=== PATIENT | male | born 1955 | race Caucasian/White ===

== ENCOUNTER 2016-12-21 11:12 | Observation (INO) | payer BC ==
[2016-12-21] MEDS ORDERED: Pepcid 20 MG VIAL IV ONE (11:19)
[2016-12-21] MEDS ORDERED: BICITRA 30 ML CUP PO ONE (11:19)
[2016-12-21] MEDS ORDERED: CEFAZOLIN 2 GM-D5W BAG** 50 ML IV ONE (11:20)
[2016-12-21] MEDS: Lactated Ringers 1,000 ML IV SCH ×2 (11:36→23:41)
[2016-12-21] MEDS ORDERED: Lactated Ringers 1,000 ML IV ONE ×2 (11:57→15:46)
[2016-12-21] MEDS ORDERED: Sensorcaine 0.25% 10 ML ONE ×2 (11:57→14:23)
[2016-12-21] MEDS ORDERED: Decadron 4 MG INJ IV ONE (12:30)
[2016-12-21] MEDS ORDERED: DIPRIVAN 200 MG/20 ML IV ONE (12:30)
[2016-12-21] MEDS ORDERED: Naropin 0.5% 30 ML VIAL IJ ONE (12:30)
[2016-12-21] MEDS ORDERED: SUBLIMAZE 100 MCG/2 ML IV ONE (12:30)
[2016-12-21] MEDS ORDERED: Zemuron 100 MG/10 ML IV ONE (12:30)
[2016-12-21] MEDS ORDERED: TORAdol 30 mg Injection IV ONE (12:30)
[2016-12-21] MEDS ORDERED: Zofran 4 MG/2 ML VIAL IV ONE (12:30)
[2016-12-21] MEDS ORDERED: BRIDION 200MG/2ML IV ONE (12:30)
[2016-12-21] MEDS ORDERED: DILAUDID 2 MG INJECTION IV ONE (12:30)
[2016-12-21] MEDS ORDERED: KEFZOL 1 GM ONE (14:22)
[2016-12-21] MEDS ORDERED: DILAUDID 2 MG INJECTION ONE (15:24)
[2016-12-21] MEDS ORDERED: SUBLIMAZE 100 MCG/2 ML ONE (15:41)
[2016-12-21] MEDS ORDERED: OFIRMEV 100 ML IV ONE (16:16)
[2016-12-21] MEDS: Morphine PCA 1 MG/ML 30 ML IV PRN (16:36)
[2016-12-21] MEDS ORDERED: MORPHINE SULFATE 4 MG INJ IV PRN (17:16)
[2016-12-21] MEDS ORDERED: MORPHINE SULFATE 2 MG INJ IV PRN (17:16)
[2016-12-21] MEDS: Zofran 4 MG/2 ML VIAL IV PRN (21:03)
[2016-12-21] MEDS: Flomax 0.4 MG PO SCH (21:58)
[2016-12-22] MEDS: Morphine PCA 1 MG/ML 30 ML IV PRN (04:10)
[2016-12-22] MEDS: NORCO 5/325 MG PO PRN ×5 (07:24→22:03)
[2016-12-22] MEDS ORDERED: MEDICATION INTERVENTION MC PRN (08:15)
[2016-12-22] MEDS ORDERED: AZILSARTAN MED PO SCH (10:00)
[2016-12-22] MEDS ORDERED: NON-FORMULARY ITEM (Nebivolol Hcl [Bystolic] 10 MG) PO SCH (10:00)
[2016-12-22] MEDS ORDERED: CHLORTHALIDONE PO SCH (10:00)
[2016-12-22] MEDS: Bystolic 5 MG PO SCH (11:01)
[2016-12-22] MEDS: Zofran 4 MG/2 ML VIAL IV PRN (14:07)
--- NOTE | 2016-12-22 14:29 | OP ---
SURGERY DATE: 12/21/16 SURGERY TIME: 1350 PREOPERATIVE DIAGNOSIS: 1. SYMPTOMATIC BILATERAL INGUINAL HERNIAS, RIGHT GREATER THAN LEFT. POSTOPERATIVE DIAGNOSIS: 1. SYMPTOMATIC BILATERAL INGUINAL HERNIAS, RIGHT GREATER THAN LEFT. PROCEDURE: 1. Bilateral inguinal herniorrhaphy with mesh. SURGEON: Toño Alberts M.D. ANESTHESIA: General. COMPLICATIONS: None. CONDITION: Stable. INDICATION: 61 y/o. OPERATIVE PROCEDURE: Taken to surgery with bilateral inguinal hernias, right greater than left. The left side was addressed first. Time-out was performed. 0.25% Marcaine. Curvilinear incision. External oblique opened. A large direct hernia was present. Was reduced. Temporarily tacked in with 0 Prolene. A 1 X 4 mesh was then placed into the floor with sutures of #0 Prolene throughout making sure not to entrap underlying nerve fibers. Internal ring was 1 clamp tight. Hemostasis satisfactory. Cord and ilioinguinal nerve laid back in natural position. External oblique closed with 0 Vicryl. Jose's approximated with 2-0 Vicryl. Skin closed with dhara. On the right side, a larger hernia, larger direct. There was a lipoma cord X 2 that was taken. This was reduced as necessary to make a relaxing incision. It was held in place with 0 Prolene and then a prefashioned mesh was placed and was secured in placed with 0 Prolene throughout. Internal ring 1 clamp tight. Hemostasis satisfactory. There was no external oblique to close over. Jose's approximated with 3-0 Vicryl. Skin closed with dhara. Sterile dressing applied. Patient tolerated the procedure satisfactory.
[2016-12-22] MEDS ORDERED: TUMS EX TABLETS PO ONE (19:03)
[2016-12-22] MEDS: Tums EX 750 MG PO PRN ×2 (19:11→22:04)
[2016-12-22] MEDS: Flomax 0.4 MG PO SCH (22:03)
[2016-12-23] MEDS: Tums EX 750 MG PO PRN ×3 (00:37→12:42)
[2016-12-23] MEDS: MAALOX ES 30 ML UNIT DOSE PO PRN ×2 (10:09→14:17)
[2016-12-23] MEDS: Bystolic 5 MG PO SCH (10:13)
[2016-12-23] MEDS ORDERED: TUMS EX TABLETS PO ONE (12:41)
[2016-12-23] MEDS: NORCO 5/325 MG PO PRN (14:20)
[2016-12-23] MEDS: Morphine PCA 1 MG/ML 30 ML IV PRN (15:55)
[2016-12-23 17:04] VITALS: BP 155/87; PULSE 98; O2SAT 95
--- NOTE | 2016-12-26 10:45 | DS ---
ADMISSION DIAGNOSIS: Bilateral inguinal hernia. DISCHARGE DIAGNOSIS: BILATERAL INGUINAL HERNIA. PROCEDURE: Bilateral inguinal hernia repair per Dr. Alberts. For details see Dr. Alberts's history and physical. HOSPITAL COURSE: The patient underwent bilateral hernia repair by Dr. Alberts with mesh. He was admitted to the hospital for pain control. He remained in the hospital the next couple of days for pain control and finally improved where he was managing on oral pain medication and was ready to be discharged home on postoperative day #2. He was discharged home in good condition. The incision was clean and intact. He was passing flatus. He was tolerating p.o. Discharged home in good condition on oral Garnett per Dr. Alberts and follow up in the office with Dr. Alberts next week. For details see Dr. Alberts's notes.
== END 2016-12-23 17:20 | disposition home or self-care (01) ==
LOC: SDC 11:12 → MED SURG 16:45
PROVIDERS: ADMIT Surgery; ATTEND Surgery
PROC: 0YUA0JZ Supplement Bilateral Inguinal Region with Synthetic Substitute, Open Approach (ICD-10-PCS; principal; 2016-12-21)
DX: K40.20 Bilateral inguinal hernia, without obstruction or gangrene, not specified as recurrent (principal)
CPT/HCPCS: 00830; 64425; 94760; 94762; C1781; G0378; J0690; J1100; J1170; J1885; J2270; J2405; J2704; J2795; J3010; A9270-GY